=== PATIENT | female | born 1950 | race Caucasian/White ===

== ENCOUNTER 2024-09-24 11:21 | Inpatient (IN) ==
--- NOTE | 2024-09-24 11:43 | Emergency Department Note ---
Impression & Plan Non-ST elevation MO (NSTEMI), Elevated troponin, Abnormal ECG ED Provider Note NAME: DANTE GUARDADO AGE: 74 SEX: F : 1950 ARRIVES VIA: Walk-In INFORMANT: Patient ED PROVIDER(S): Nate Grande DO CHIEF COMPLAINT: chest pain HPI: Patient is a 74-year-old female who presents ER with a past medical history of IBS for chest pain. She notes intermittently she has been getting pressure burning pain in the middle of her chest that comes and goes. Generally occurs in the morning when she wakes up and last for several hours and then abates. Occurred yesterday to 11:00 and occurred again today till about 12/14/2010. She denies any arm or jaw pain but admits to feeling heavy and weak throughout her arms and legs. She currently has no pain at all. Denies any dysuria, urgency, or frequency. Admits to chronic back pain which is unchanged. ADDITIONAL HISTORY OBTAINED: Per HPI Chronic Medical/Social Conditions Affecting Care: Per HPI PAST MEDICAL HISTORY:See Below PAST SURGICAL HISTORY:See Below FAMILY HISTORY:See Below SOCIAL HISTORY:See Below HOME MEDICATIONS:See Below ALLERGIES:See Below VITALS:See Below PHYSICAL EXAMINATION: GENERAL: Sitting up in bed, alert, well appearing, well nourished, no distress, non-toxic EYE EXAM: normal conjunctiva. OROPHARYNX: mucous membranes are moist NECK: supple, no nuchal rigidity, no adenopathy, non-tender LUNGS: Clear to auscultation. Normal chest wall mechanics HEART: no murmurs, S1 normal and S2 normal ABDOMEN: abdomen soft, non-tender, normo-active bowel sounds, no masses, no rebound or guarding. UPPER EXTREMITIES: upper extremities are grossly normal. LOWER EXTREMITIES: No pitting edema. Calves are equal bilaterally NEURO EXAM: Normal sensorium, cranial nerves II-XII grossly intact, normal speech, no gross weakness of arms, no gross weakness of legs. MEDICAL DECISION MAKING: Patient is a 74-year-old female who presents ER for chest pain which has been occurring off and on for the past 3 days. IV was established and blood work was obtained. Labs showed no significant leukocytosis or anemia. INR unremarkable. BMP with mild hypokalemia 3.3. LFTs bilirubin were unremarkable. Troponin was elevated at 300. Lipase was normal. Discussed with cardiology and heparin drip and bolus was ordered. Patient and family were updated bedside discussed case with the hospitalist for further evaluation management treatment. Drip and bolus was canceled as it was also ordered by the Hospitalist. Consults/Care Managements Discussions: Per [facility] Triage Nursing notes reviewed. Limited review of prior medical records performed Vital Signs: reviewed and remarkable for HTN Differential diagnosis: Cardiac ischemia, aortic dissection, pulmonary embolism, pneumothorax, pneumonia, pericarditis, myocarditis, esophageal rupture, GERD, cholecystitis, pancreatitis, musculoskeletal, as well as other pathologies. ER treatment provided: See below Diagnostics interpreted by me include EKG and cardiac monitoring as listed below: -Cardiac Monitoring: An order was placed for continuous cardiac monitoring. The monitor shows a rate of 60 with sinus rhythm. -ECG: Sinus rhythm rate of 93 Normal axis No PVCs ST depressions in the inferior leads as well as lateral leads which are new in comparison to previous -Laboratory studies:Interpreted by me as stated above in MDM and shown below. Imaging studies: Xrays: As interpreted by me: Portable AP upright 1 view of the chest shows no focal Lutrate CTs show: none Procedures:none Critical Care: None Past Med/Surg History Problem List (Updated 09/24/24 @ 14:45 by Nate Grande DO) Abnormal ECG (Acute) Elevated troponin (Acute) Non-ST elevation MO (NSTEMI) (Acute) COVID-19 (Acute) IBS (irritable bowel syndrome) (Chronic) Hyperventilation (Acute) Sinusitis (Acute) Medical History IBS (irritable bowel syndrome) Social History Smoking Status: Never smoker Preferred Language: Turkish Feels Safe at Home: Yes Allergies Allergies Allergy/AdvReac Type Severity Reaction Status Date / Time Penicillins Allergy Intermediate RASH Verified 04/13/13 10:00 Home Meds Home Medications Medication Instructions Recorded Confirmed LORAZEPAM 0.5 mg TID PRN anxiey ##0 11/22/12 09/24/24 ONDANSETRON HCL (ZOFRAN) 4 mg PO Q6 PRN Nausea And Vomiting 11/22/12 09/24/24 #0 tabs Bupropion (Wellbutrin Sr) 200 mg PO BID #0 tabs 02/01/15 09/24/24 DICYCLOMINE HCL 1 cap PO QID 30 days #90 caps 02/01/15 09/24/24 HYDROCHLOROTHIAZIDE 1 tab PO DAILY 90 days #90 tabs 02/01/15 09/24/24 LOSARTAN POTASSIUM (COZAAR) 25 mg PO DAILY #0 tabs 02/01/15 09/24/24 MELATONIN (MELATONIN MAXIMUM 1 tab PO HS 30 days #30 tabs 02/01/15 09/24/24 STRENGT) OMEPRAZOLE (PRILOSEC) 40 mg PO DAILY #0 caps 02/01/15 09/24/24 Advair HFA 1 puff PO DAILY PRN Wheezing 09/24/24 09/24/24 Flonase 1 inh GABRIELE DAILY PRN allergic 09/24/24 09/24/24 rhinitis albuterol 1 puff PO Q4H PRN Wheezing 09/24/24 09/24/24 buspirone 5 mg tablet 5 mg PO TID 09/24/24 09/24/24 estradiol 0.01% (0.1 mg/gram) 1 g vaginal DAILY 09/24/24 09/24/24 vaginal cream (Estrace) levocetirizine 5 mg tablet 5 mg DAILY PRN allergies 09/24/24 09/24/24 montelukast 10 mg tablet 10 mg PO HS 09/24/24 09/24/24 (Singulair) Results & Data (ED) Vital Signs Vital Signs - 24 hr 09/24/24 11:23 09/24/24 11:27 09/24/24 12:09 Temperature 36.6 C Temperature Source Temporal Artery Scan Pulse Rate 67 64 Respiratory Rate 18 Respiratory Effort / Characteristics Non-Labored Spontaneous Respiratory Depth Normal Respiratory Pattern Regular Blood Pressure 149/84 H Blood Pressure Mean 105 Blood Pressure Position Sitting Pulse Oximetry 99 99 Oxygen Delivery Method Room Air Room Air Sepsis Recent Fever Within 48 Hours No Sepsis New/Unexplained Change in Mental Status N/A Sepsis Action Taken by Nursing No Action Required Laboratory Data 09/24/24 11:38 09/24/24 11:38 Lab Results 09/24/24 Range/Units 11:38 WBC 8.39 (4.8-10.8) K/ul RBC 5.49 H (4.20-5.40) M/uL Hgb 14.8 (12.0-16.0) g/dl Hct 45.4 (37.0-47.0) % MCV 82.7 (80.0-100.0) fL MCH 27.0 (25.0-34.0) pg MCHC 32.6 (32.0-36.0) g/dL RDW Std Deviation 38.6 (36.4-46.3) fL RDW Coeff of Madeleine 12.7 (11.5-14.5) % Plt Count 126 L (130-400) K/uL MPV 9.3 L (9.4-12.4) fL Immature Gran % (Auto) 0.4 % Neut % (Auto) 69.7 % Lymph % (Auto) 20.3 % Randall % (Auto) 7.3 % Eos % (Auto) 1.8 % Baso % (Auto) 0.5 % Neut # (Auto) 5.86 (1.40-6.50) K/uL Lymph # (Auto) 1.70 (1.20-3.40) K/uL Randall # (Auto) 0.61 H (0.11-0.59) K/uL Eos # (Auto) 0.15 (0.00-0.50) K/uL Baso # (Auto) 0.04 (0.00-0.20) K/uL Immature Gran # (Auto) 0.03 (0.01-0.20) K/uL PT 10.6 (9.0-12.0) Seconds INR 1.0 (0.9-1.1) Sodium 137 (136-145) mmol/L Potassium 3.3 L (3.5-5.1) mmol/L Chloride 99 (98-107) mmol/L Carbon Dioxide 30 (21-32) mmol/L Anion Gap 8 (3-11) BUN 15 (6-23) mg/dl Creatinine 0.87 (0.6-1.2) mg/dl Est Cr Clr Drug Dosing 46.5 ml/min eGFR 69.44 BUN/Creatinine Ratio 17.2 (10-20) Glucose 110 H (70-99(Fasting)) mg/dl Calcium 9.9 (8.6-10.3) mg/dl Total Bilirubin 0.5 (0.2-1.0) mg/dl AST 22 (13-39) U/L ALT 18 (7-52) U/L Alkaline Phosphatase 91 (34-104) U/L Troponin I High Sens 324.0 H* (0-14) pg/ml Total Protein 7.6 (6.0-8.3) gm/dl Albumin 4.3 (3.4-5.0) gm/dl Globulin 3.3 (2.5-4.0) gm/dl Albumin/Globulin Ratio 1.3 (0.9-2) Lipase 12 (11-82) U/L Administered Medications Potassium Chloride (K Jesus / Wtr) 10 meq in 100 mls @ 100 mls/hr IV Q1H BALDO Stop: 09/24/24 15:29 Last Admin: 09/24/24 13:49 Dose: 100 mls/hr Documented By: JON Discontinued Medications Aspirin (Aspirin Chew 324 Mg) 324 mg PO NOW STA Stop: 09/24/24 11:41 Last Admin: 09/24/24 11:49 Dose: 324 mg Documented By: NERY Lorazepam (Lorazepam 0.5 Mg Tab) 0.5 mg PO NOW STA Stop: 09/24/24 13:38 Last Admin: 09/24/24 13:50 Dose: 0.5 mg Documented By: JON Ondansetron HCl (Ondansetron Inj 2 Mg/Ml 2 Ml Vial) Confirm Administered Dose 4 mg .ROUTE .STK-MED ONE Stop: 09/24/24 14:17 Last Admin: 09/24/24 14:31 Dose: Not Given Documented By: JON Potassium Chloride (Potassium Chloride Crtab 20 Meq Tabcr) 40 meq PO NOW STA Stop: 09/24/24 13:19 Last Admin: 09/24/24 13:49 Dose: 40 meq Documented By: JON Imaging Data Radiologist's Impression: Chest X-Ray 09/24/24 11:27 XR chest 1V portable HISTORY: 74 years-old Female Chest pain, nonspecific COMPARISON: 09/17/2022 TECHNIQUE: AP view of the chest FINDINGS: Cardiomediastinal and hilar silhouettes are within normal limits. No pneumothorax, pleural effusion or airspace consolidation. Bones appear grossly intact. IMPRESSION: No acute process. ACT 112: Negative or not required by law. The above report was generated using voice recognition software. It may contain grammatical, syntax or spelling errors. Electronically signed by: Juan Mccray M.D. 09/24/2024 12:01 PM Discharge Plan Visit Data Chief Complaint: Chest Pain Stated Complaint: BURNING IN CHEST, ARM WEAKNESS ED Provider: Nate Grande Discharge Problem: Non-ST elevation MO (NSTEMI), Elevated troponin, Abnormal ECG Condition: Fair Forms Stand Alone Forms: [facility] Prescriptions Prescriptions: No Action LORAZEPAM 0.5 MG tablet 0.5 mg TID PRN (Reason: anxiey) Qty: 0 ONDANSETRON HCL (ZOFRAN) 4 MG tablet 4 mg PO Q6 PRN (Reason: Nausea And Vomiting) Qty: 0 Bupropion (Wellbutrin Sr) 200 MG EXT REL TAB 200 mg PO BID Qty: 0 DICYCLOMINE HCL 10 MG capsule 1 cap PO QID 30 Days Qty: 90 HYDROCHLOROTHIAZIDE 25 mg tablet 1 tab PO DAILY 90 Days Qty: 90 LOSARTAN POTASSIUM (COZAAR) 25 MG tablet 25 mg PO DAILY Qty: 0 MELATONIN (MELATONIN MAXIMUM STRENGT) 5 MG tablet 1 tab PO HS 30 Days Qty: 30 OMEPRAZOLE (PRILOSEC) 40 mg CONTR REL CAP 40 mg PO DAILY Qty: 0 Advair HFA 45 mcg inhaler 1 puff PO DAILY PRN (Reason: Wheezing) buspirone [BuSpar] 5 mg Tablet 5 mg PO TID montelukast [Singulair] 10 mg Tablet 10 mg PO HS estradiol [Estrace] 0.01 % (0.1 mg/gram) Cream 1 g VAGINAL DAILY levocetirizine 5 mg Tablet 5 mg DAILY PRN (Reason: allergies) Flonase 50 mcg inhaler 1 inh GABRIELE DAILY PRN (Reason: allergic rhinitis) albuterol 108 mcg inhaler 1 puff PO Q4H PRN (Reason: Wheezing) Referrals Referrals: Chelsey Chu PA-C [Primary Care Provider] -
[2024-09-24] MEDS: ASPIRIN CHEW 324 MG PO STA (11:49)
[2024-09-24 11:54] LABS: Hematocrit (blood only) 45.4 % (37.0-47.0); Hemoglobin 14.8 g/dl (12.0-16.0); Immature Granulocytes # (auto) 0.03 K/uL (0.01-0.20); Immature Granulocytes % (auto) 0.4 %; Mean Corpuscular Hemoglobin 27.0 pg (25.0-34.0); Mean Corpuscular Volume 82.7 fL (80.0-100.0); Platelet Count 126 K/uL (130-400); RDW Standard Deviation 38.6 fL (36.4-46.3); Red Blood Count 5.49 M/uL (4.20-5.40); White Blood Count 8.39 K/ul (4.8-10.8)
--- NOTE | 2024-09-24 12:02 | XRay Report ---
XR chest 1V portable HISTORY: 74 years-old Female Chest pain, nonspecific COMPARISON: 09/17/2022 TECHNIQUE: AP view of the chest FINDINGS: Cardiomediastinal and hilar silhouettes are within normal limits. No pneumothorax, pleural effusion o r airspace consolidation. Bones appear grossly intact. IMPRESSION: No acute process. ACT 112: Negative or not required by law. The above report was generated using voice recognition software. It may contain grammatical, syntax o r spelling errors. Electronically signed by: Juan Mccray M.D. 09/24/2024 12:01 PM
[2024-09-24 12:13] LABS: Alanine Aminotransferase 18.0 U/L (7-52); Albumin Globulin Ratio 1.3 (0.9-2); Alkaline Phosphatase 91.0 U/L (34-104); Anion Gap 8.0 (3-11); Bilirubin,Total 0.5 mg/dl (0.2-1.0); Blood Urea Nitrogen 15.0 mg/dl (6-23); Calcium 9.9 mg/dl (8.6-10.3); Carbon Dioxide 30.0 mmol/L (21-32); Chloride 99.0 mmol/L (98-107); Creatinine Clr Calc Pharmacy 46.5 ml/min; Globulin 3.3 gm/dl (2.5-4.0); Glucose 110.0 mg/dl (70-99(Fasting)); Lipase 12.0 U/L (11-82); Potassium 3.3 mmol/L (3.5-5.1); Sodium 137.0 mmol/L (136-145); Total Protein 7.6 gm/dl (6.0-8.3)
--- NOTE | 2024-09-24 12:51 | History & Physical Report ---
Date of Service September 24, 2024 Assessment & Plan (1) Non-ST elevation IN (NSTEMI): (2) Abnormal ECG: Plan Ms. Martinez is a 74 year old woman with past medical history remarkable for recurrent major depressive disorder, anxiety, moderate persistent asthma, HTN, chronic pansinusitis admitted to PCU for NSTEMI #NSTEMI #Heart Failure with reduced EF, 30-35% 3 days substernal chest pain, initial troponin 324-->1115.6 Heparin drip started Cardiology consulted: NPO midnight for LHC tomorrow admit PCU Hold AV anali alan for now lipid panel and a1c in am asa in am nitropaste q 6 hours #Hypokalemia IV and po replacement trend BMP in am #recurrent major depressive disorder #anxiety continue wellbutrin continue buspar continue ativan prn #IBS continue bentyl qid continue docusate continue zofran prn #HTN On losartan 25mg and HCTZ 25mg Hold for now, resume ARB as able #Chronic pansinusitis #Mild asthma nebs prn DVT ppx Heparin drip Full code admit PCU Admission and Anticipated Discharge Date Admission Date: Time spent evaluating patient, direct bedside care, chart review, placing orders, interpretation of diagnostic studies, discussion with consultants, patient, and family members, as well as other required patient management activities is 80 minutes. History of Present Illness Chief Complaint: chest pain Primary Care Provider: Chelsey Chu PA-C Ms. Martinez is a 74 year old woman with past medical history remarkable for recurrent major depressive disorder, anxiety, moderate persistent asthma, HTN, chronic pansinusitis presented to [facility] ED due to chest discomfort. Patient states she noted this discomfort 3 days prior. She refutes the use of the term pain, describing it as a deep, intermitted, substernal burning. This does not feel like prior reflux/heart burn sensation she routinely has--she states this is more intense. She thinks "blue Gatorade" makes it worse, but doesn't notice any other association with intake. She reports extreme anxiety over divorce ongoing and suspects this is all "just reflux" Denies history of heart issues. Denies tobacco use, etoh, or other illicit use. In the ED, vitals were notable for BP of 140-150s HR of 60s and O2 sat of high 90s on room air Imaging revealed EKG notable for St changes in in V1-V2, as well as V4-V6 ED interventions: asa 324 Consultants: Cardiology Patient to be admitted to PCU for further evaluation and management of ACS Allergies Allergy/AdvReac Type Severity Reaction Status Date / Time Penicillins Allergy Intermediate RASH Verified 04/13/13 10:00 Home Medications Medication Instructions Recorded Confirmed Type LORAZEPAM 0.5 mg TID PRN anxiey ##0 11/22/12 09/24/24 History ONDANSETRON HCL (ZOFRAN) 4 mg PO Q6 PRN Nausea And Vomiting 11/22/12 09/24/24 History #0 tabs Bupropion (Wellbutrin Sr) 200 mg PO BID #0 tabs 02/01/15 09/24/24 History DICYCLOMINE HCL 1 cap PO QID 30 days #90 caps 02/01/15 09/24/24 History HYDROCHLOROTHIAZIDE 1 tab PO DAILY 90 days #90 tabs 02/01/15 09/24/24 History LOSARTAN POTASSIUM (COZAAR) 25 mg PO DAILY #0 tabs 02/01/15 09/24/24 History MELATONIN (MELATONIN MAXIMUM 1 tab PO HS 30 days #30 tabs 02/01/15 09/24/24 History STRENGT) OMEPRAZOLE (PRILOSEC) 40 mg PO DAILY #0 caps 02/01/15 09/24/24 History Advair HFA 1 puff PO DAILY PRN Wheezing 09/24/24 09/24/24 History Flonase 1 inh GABRIELE DAILY PRN allergic 09/24/24 09/24/24 History rhinitis albuterol 1 puff PO Q4H PRN Wheezing 09/24/24 09/24/24 History buspirone 5 mg tablet 5 mg PO TID 09/24/24 09/24/24 History estradiol 0.01% (0.1 mg/gram) 1 g vaginal DAILY 09/24/24 09/24/24 History vaginal cream (Estrace) levocetirizine 5 mg tablet 5 mg DAILY PRN allergies 09/24/24 09/24/24 History montelukast 10 mg tablet 10 mg PO HS 09/24/24 09/24/24 History (Singulair) Past Med/Surg History Problem List (Updated 09/24/24 @ 15:25 by DAISY Waddell) Hypertension Abnormal ECG (Acute) Elevated troponin (Acute) Non-ST elevation IN (NSTEMI) (Acute) COVID-19 (Acute) IBS (irritable bowel syndrome) (Chronic) Hyperventilation (Acute) Sinusitis (Acute) Medical History IBS (irritable bowel syndrome) Social History Smoking Status: Never smoker Preferred Language: Martiniquais Feels Safe at Home: Yes Review of Systems Review of Systems: Constitutional: (-) fever/chills, (-) recent loss of weight, (-) appetite changes, (-) night sweats. Head: (-) headache, (-) dizziness. Eye: (-) blurring of vision, (-) double vision, (-) redness. Ear: (-) hearing loss, (-) discharge, (-) vertigo Nose: (-) discharge, (-) bleeding, (-) congestion, (-) post nasal drip. Throat: (-) sore throat, (-) hoarseness of voice, (-) odynophagia. Cardiovascular: (++) chest pain, (-) palpitations, (-) syncope, (-) orthopnea, (-) PND, (-) leg swelling. Respiratory: (-) shortness of breath, (-) cough, (-) wheezing, (-) hemoptysis. Neuro: (-) weakness in extremities, (-) numbness, (-) tingling, (-) tremor. Gastrointestinal: (-) belly pain, (-) belly distension, (-) nausea, (-) vomiting, (-) diarrhea, (-) constipation Genitourinary: (-) hematuria, (-) dysuria, (-) polyuria, (-) hesitancy, (-) frequency, (-) urinary incontinence. Musculoskeletal: (-) myalgia, (-) arthralgia. Skin: (-) rashes. Endocrine: (-) heat/cold intolerance. Psychiatry: (-) depression, (-) hallucination. Physical Exam Physical Exam: GENERAL APPEARANCE: AxOx4, very anxious however pleasant woman HEENT: NC, AT. MMM. EOMI, clear conjunctiva, oropharynx clear. NECK: Supple without lymphadenopathy. No stiffness or restricted ROM. HEART: Normal rate and regular rhythm, normal S1/S1, no m/r/g, pain not reproducible to palpation LUNGS: CTAB, moving air well. No crackles or wheezes are heard. ABDOMEN: Soft, nontender, nondistended with good bowel sounds heard. BACK: No CVAT, no obvious deformity. EXTREMITIES: Without cyanosis, clubbing or edema. NEUROLOGICAL: Grossly nonfocal. Alert and oriented, moving all 4 extremities. CN not formally tested but appear grossly intact. Skin: Warm and dry without any rash. Results & Data Results & Data Vital Signs (Past 12 Hours) Vital Signs Temp Pulse Resp BP Pulse Ox O2 Del Method 09/24/24 12:09 64 09/24/24 11:23 36.6 C 67 18 149/84 H 99 Room Air Laboratory Results Short CBC 09/24/24 Range/Units 11:38 WBC 8.39 (4.8-10.8) K/ul Hgb 14.8 (12.0-16.0) g/dl Hct 45.4 (37.0-47.0) % Plt Count 126 L (130-400) K/uL BMP 09/24/24 11:38 Sodium 137 Potassium 3.3 L Chloride 99 Carbon Dioxide 30 BUN 15 Creatinine 0.87 Glucose 110 H Calcium 9.9 Liver Function 09/24/24 Range/Units 11:38 Total Bilirubin 0.5 (0.2-1.0) mg/dl AST 22 (13-39) U/L ALT 18 (7-52) U/L Alkaline Phosphatase 91 (34-104) U/L Albumin 4.3 (3.4-5.0) gm/dl Medications Administered Home Medications Medication Instructions Recorded Confirmed Last Taken LORAZEPAM 0.5 mg TID PRN ##0 11/22/12 Unknown ONDANSETRON HCL (ZOFRAN) 4 mg PO Q6 PRN #0 tabs 11/22/12 Unknown Bupropion (Wellbutrin Sr) 200 mg PO DAILY #0 tabs 02/01/15 Unknown DICYCLOMINE HCL 1 cap PO QID 30 days #90 caps 02/01/15 Unknown DOXYCYCLINE HYCLATE 1 tab PO BID 10 days #20 tabs 02/01/15 Unknown HYDROCHLOROTHIAZIDE 1 tab PO DAILY 90 days #90 tabs 02/01/15 Unknown LOSARTAN POTASSIUM (COZAAR) 25 mg PO DAILY #0 tabs 02/01/15 Unknown MELATONIN (MELATONIN MAXIMUM 1 tab PO HS 30 days #30 tabs 02/01/15 Unknown STRENGT) OMEPRAZOLE (PRILOSEC) 20 mg PO DAILY #0 caps 02/01/15 Unknown
[2024-09-24 13:34] LABS: INR 1.0 (0.9-1.1); Prothrombin Time 10.6 Seconds (9.0-12.0)
[2024-09-24] MEDS: POTASSIUM CHLORIDE / WTR 10 MEQ/100 ML PLCT IV SCH (13:49)
[2024-09-24] MEDS: POTASSIUM CHLORIDE CRTAB 20 MEQ TABCR PO STA (13:49)
[2024-09-24] MEDS: LORazepam 0.5 MG TAB PO STA (13:50)
[2024-09-24] MEDS ORDERED: Heparin IV Adult Wt-Based Standard w/ INITIAL Bolus Protocol IV STA (14:15)
[2024-09-24] MEDS ORDERED: HEPARIN SOD (PORCINE) 1000 UNIT/ML IV ONE (14:30)
[2024-09-24] MEDS ORDERED: HEPARIN 25000 UNIT/500 ML D5W 25,000 UNITS/500 ML BAG IV SCH (14:30)
[2024-09-24] MEDS: ONDANSETRON INJ 2 MG/ML 2 ML VIAL ONE (14:31)
[2024-09-24] MEDS: Heparin IV Adult Wt-Based Low-Dose *NO* INITIAL Bolus Protocol IV STA (15:14)
[2024-09-24] MEDS: ONDANSETRON INJ 2 MG/ML 2 ML VIAL IV STA (15:15)
[2024-09-24] MEDS: NITROGLYCERIN 2% OINTMENT 30GM TUBE EXT SCH ×2 (15:15→21:05)
[2024-09-24] MEDS: PANTOprazole 40 MG/10 ML SYR IV ONE (15:15)
--- NOTE | 2024-09-24 15:20 | Cardiology Consultation ---
Date of Consultation September 24, 2024 Assessment & Plan (1) Abnormal ECG: (2) Elevated troponin: (3) Non-ST elevation VA (NSTEMI): (4) Hypertension: Plan 74 year old female with PMHx significant for HTN with history of FAUSTO inhibitor intolerance, TRAE, depression, IBS, GERD, and asthma who presented to [facility] on 09/24/24 for evaluation of chest pain. She notes intermittent, non-radiating, burning midsternal chest discomfort that started three days ago. Chest discomfort occurred upon waking up in the morning and got progressively worse over the course of the three days. Isabella like burning/reflux sensation. Went into [facility] for evaluation and told to come into ED for further work- up. Denies pain radiating to jaw or bilateral arms. Denies associated nausea or diaphoresis. EKG upon admission demonstrated ST-T wave abnormality with ST depression in inferolateral leads, 93 bpm, and QTc 489 ms. High-sensitivity troponins x2 elevated ([id number]). Recommendations: * Non-radiating, burning midsternal chest discomfort concerning for NSTEMI given abnormal EKG changes and elevated troponins * Remains stable and asymptomatic with no recurrent chest discomfort since admission * Continue to trend troponins until peak * Start IV heparin gtt for anticoagulation * Start aspirin 81 mg daily * Hold off on starting AV anali blockers at this time given sinus bradycardia * Plan for left heart catheterization tomorrow and NPO at midnight tonight (09/24) except for medications * Continue to monitor on telemetry Case discussed and coordinated with Dr. Gerard. Please see Dr. Gerard notes for further recommendations. I spent a total of 45 minutes coordinating, documenting, and providing care for this patient excluding time spent in the performance of separately billed services or time spent by another provider/QHP. DAISY Waddell Department of Cardiology Supervising Physician Co-Signing Physician Notes I spent a total of 60 minutes on the date of service in preparation, delivery, and documentation of the care provided to this patient, excluding any time spent in the performance of separately billed services. I have personally performed a history and physical examination on the patient. I have reviewed the advance practitioner's documentation, and I agree with, and take responsibility for the plan of care. 74-year-old female with past medical history of generalized anxiety disorder, IBS, GERD, asthma presenting to emergency room today with chest discomfort. She stated the chest pain has been intermittent for the past 3 days. She states she woke with midsternal chest discomfort that she describes as a burning reflux sensation at times lasting for 20 to 30 minutes and other times lasting for few minutes and resolving on its own. She had 1 episode 3 days ago then yesterday had intermittent episodes throughout the day. This morning she woke up with significant discomfort presented to urgent care who had advised patient to come to the emergency room. Upon arrival ECG showed sinus rhythm with ST depressions in the inferolateral leads and Q waves in the anterior leads. Her initial troponin was 324 which increased to 1115. Currently completely asymptomatic not having any more chest discomfort. She denies having any dyspnea, apnea, PND, Edema, palpitations, or syncope. She denies any abnormal bleeding. She denies any prior history of CAD/CHF. As far as she is aware she does not recall any family history of coronary artery disease. Never had a history of smoking. Currently resting comfortably and is hemodynamically stable and clinical exam sh e is euvolemic. Echocardiogram reviewed which showed LVEF of 30 to 35% with large size anterior apical and lateral wall motion abnormalities. No significant valvular disease. Had a long discussion with patient and her family about her symptoms and clinical presentation. She likely has coronary artery disease and we will plan on a left heart catheterization. Patient agrees for procedure to be done. She denies any contrast allergies or history of intracranial hemorrhage or abnormal bleeding. Please keep patient n.p.o. after midnight. Continue to monitor on telemetry. Unable to start beta-alan as her resting heart rate currently is in the mid 50s. She has an intolerance to FAUSTO inhibitors may consider Entresto versus losartan after left heart catheterization for ischemic cardiomyopathy. Please start heparin drip. If patient continues to have chest discomfort may need to discuss with interventional cardiology to take patient to the Product Manager sooner. Otherwise she is currently asymptomatic with no recurrence of chest pain. Will continue to monitor for now. History of Present Illness History of Present Illness 74 year old female with PMHx significant for HTN with history of FAUSTO inhibitor intolerance, TRAE, depression, IBS, GERD, and asthma who presented to [facility] on 09/24/24 for evaluation of chest pain. She notes intermittent, non-radiating midsternal chest discomfort that started three days ago. Isabella like burning/reflux sensation. Chest discomfort occurred in the morning up waking up and resolved quickly the first morning. Developed recurrent chest discomfort yesterday morning up waking and occurred off and on throughout the day. Woke up this morning with severe chest discomfort. Went into [facility] for evaluation and told to come into ED for further work-up. Denies pain radiating to jaw or bilateral arms. Denies associated nausea or diaphoresis. Denies worsening dyspnea on exertion, tachy palpitations, lightheadedness, dizziness, syncope, orthopnea, PND, or worsening edema. Denies history of heart problems. Denies significant bleeding issues including hematochezia or melena. Denies prior history of CVA/TIA. Denies tobacco, alcohol, or illicit drug use. Her mother of cancer and unsure if she had a history of heart disease. Allergies Allergy/AdvReac Type Severity Reaction Status Date / Time Penicillins Allergy Intermediate RASH Verified 04/13/13 10:00 Home Medications Medication Instructions Recorded Confirmed Type LORAZEPAM 0.5 mg TID PRN anxiey ##0 11/22/12 09/24/24 History ONDANSETRON HCL (ZOFRAN) 4 mg PO Q6 PRN Nausea And Vomiting 11/22/12 09/24/24 History #0 tabs Bupropion (Wellbutrin Sr) 200 mg PO BID #0 tabs 02/01/15 09/24/24 History DICYCLOMINE HCL 1 cap PO QID 30 days #90 caps 02/01/15 09/24/24 History HYDROCHLOROTHIAZIDE 1 tab PO DAILY 90 days #90 tabs 02/01/15 09/24/24 History LOSARTAN POTASSIUM (COZAAR) 25 mg PO DAILY #0 tabs 02/01/15 09/24/24 History MELATONIN (MELATONIN MAXIMUM 1 tab PO HS 30 days #30 tabs 02/01/15 09/24/24 History STRENGT) OMEPRAZOLE (PRILOSEC) 40 mg PO DAILY #0 caps 02/01/15 09/24/24 History Advair HFA 1 puff PO DAILY PRN Wheezing 09/24/24 09/24/24 History Flonase 1 inh GABRIELE DAILY PRN allergic 09/24/24 09/24/24 History rhinitis albuterol 1 puff PO Q4H PRN Wheezing 09/24/24 09/24/24 History buspirone 5 mg tablet 5 mg PO TID 09/24/24 09/24/24 History estradiol 0.01% (0.1 mg/gram) 1 g vaginal DAILY 09/24/24 09/24/24 History vaginal cream (Estrace) levocetirizine 5 mg tablet 5 mg DAILY PRN allergies 09/24/24 09/24/24 History montelukast 10 mg tablet 10 mg PO HS 09/24/24 09/24/24 History (Singulair) Patient History Medical History IBS (irritable bowel syndrome) Social History Smoking Status: Never smoker Preferred Language: Swedish Feels Safe at Home: Yes Review of Systems Review of Systems: See HPI for pertinent positives. All others negative other than those noted in the HPI. CONSTITUTIONAL: No change in weight, No weakness, No fatigue, No fevers, No sweats or chills. HEENT: No visual changes, No epistaxis, No bleeding gums, No dysphagia, PULMONARY: No cough, sputum, or hemoptysis, No wheezing, No shortness of breath, and No recent change in breathing. CARDIOVASCULAR: +chest pain. No dyspnea on exertion, No edema, No palpitations, No syncope, No claudication, No calf pain. GASTROINTESTINAL: +heartburn. No change in appetite, No abdominal pain, No change in bowel habits, No nausea, No vomiting, No diarrhea, No constipation, No blood in stools or black tarry stools, No dysphagia. HEMATOLOGIC: No abnormal bleeding and No bruising. NEUROLOGICAL: No falls, No dizziness, No lightheadedness, Normal balance, No headaches, and No weakness. PSYCH: No sleep disturbances, No mood changes. Results & Data Vital Signs (Past 12 Hours) Vital Signs Temp Pulse Resp BP Pulse Ox O2 Del Method 09/24/24 12:09 64 09/24/24 11:27 99 Room Air 09/24/24 11:23 36.6 C 67 18 149/84 H 99 Room Air Diagnostic Findings Cardiac Enzymes 09/24/24 09/24/24 Range/Units 11:38 14:02 AST 22 (13-39) U/L Troponin I High Sens 324.0 H* 1115.6 H* D (0-14) pg/ml Coagulation 09/24/24 Range/Units 11:38 PT 10.6 (9.0-12.0) Seconds CBC 09/24/24 Range/Units 11:38 WBC 8.39 (4.8-10.8) K/ul RBC 5.49 H (4.20-5.40) M/uL Hgb 14.8 (12.0-16.0) g/dl Hct 45.4 (37.0-47.0) % Plt Count 126 L (130-400) K/uL Neut # (Auto) 5.86 (1.40-6.50) K/uL Lymph # (Auto) 1.70 (1.20-3.40) K/uL [place] # (Auto) 0.61 H (0.11-0.59) K/uL Eos # (Auto) 0.15 (0.00-0.50) K/uL Baso # (Auto) 0.04 (0.00-0.20) K/uL Comprehensive Metabolic Panel 09/24/24 Range/Units 11:38 Sodium 137 (136-145) mmol/L Potassium 3.3 L (3.5-5.1) mmol/L Chloride 99 (98-107) mmol/L Carbon Dioxide 30 (21-32) mmol/L BUN 15 (6-23) mg/dl Creatinine 0.87 (0.6-1.2) mg/dl Glucose 110 H (70-99(Fasting)) mg/dl Calcium 9.9 (8.6-10.3) mg/dl AST 22 (13-39) U/L ALT 18 (7-52) U/L Alkaline Phosphatase 91 (34-104) U/L Total Protein 7.6 (6.0-8.3) gm/dl Albumin 4.3 (3.4-5.0) gm/dl Intake and Output 09/24/24 09/24/24 09/24/24 06:59 14:59 22:59 Intake Total 100 / 100 Balance 100 / 100 Intake: IV 100 / 100 Potassium Chloride / Wtr 10 meq 100 / 100 In 100 ml @ 100 mls/hr IV Q1H [facility] Rx#:[id number] Other: Weight 60.2 kg Weight Measurement Method Chair Scale Patient Weight 09/25/24 06:59 Weight 60.2 kg Medications Administered EKG 09/24/[address]-T wave abnormality with ST depression in inferolateral leads 93 bpm QTc 489 PG Care Time/CCT Total # of Minutes Spent Total Time Spent with Patient: Total time spent is greater than 50% in coordination of care (as documented) at patient's floor/unit and/or counseling patient: [place] [address] IN/OBS CONSULT LVL 4,60M Patient Type New Diagnoses Abnormal ECG R94.31 Elevated troponin R79.89 Non-ST elevation VA (NSTEMI) I21.4 Hypertension I10
[2024-09-24] MEDS: NITROGLYCERIN SL 0.4 MG/TAB TAB SL STA (15:26)
[2024-09-24] MEDS ORDERED: POLYETHYLENE (MIRALAX) 17 GM PACK PO PRN (16:08)
[2024-09-24] MEDS ORDERED: ALUMINUM/MAGNESIUM SUSP 30 ML UDC PO PRN (16:08)
[2024-09-24] MEDS ORDERED: ALBUTEROL 0.083% NEBU SOLN 3 ML VIAL NEB PRN (16:08)
[2024-09-24] MEDS: HEPARIN SOD (PORCINE) 1000 UNIT/ML ONE (16:37)
[2024-09-24] MEDS: HEPARIN 25000 UNIT/500 ML D5W IV ONE (16:37)
[2024-09-24] MEDS: HEPARIN 25000 UNIT/500 ML D5W 25,000 UNITS/500 ML BAG IV SCH (16:39)
[2024-09-24] MEDS: DICYCLOMINE HCL 10 MG CAP PO SCH (17:16)
[2024-09-24] MEDS: MONTELUKAST SODIUM 10 MG TABLET PO SCH (20:11)
[2024-09-24] MEDS: DOCUSATE SODIUM 100 MG CAP PO SCH (20:11)
[2024-09-24] MEDS: PREMARIN VAG CRM 14 APPLN/30 GM TUBE PV SCH (20:11)
[2024-09-24] MEDS: busPIRone 5 MG TAB PO SCH (20:11)
[2024-09-24 20:39] LABS: Appearance Urine Clear (Clear); Bacteria Urine Automated 4+ (None Seen); Cast Urine Automated 0-2 /lpf (0-2); Epithelial Cell Urine Auto 0-2 /hpf (0-2); Glucose Urine UA Negative (Negative); RBC Urine Automated 0-2 /hpf (0-2); WBC Urine Automated >50 /hpf (0-5)
[2024-09-24] MEDS: MELATONIN 3 MG TAB PO SCH (21:04)
[2024-09-24] MEDS: LORazepam 0.5 MG TAB PO PRN (21:05)
[2024-09-24] MEDS: ONDANSETRON INJ 2 MG/ML 2 ML VIAL IV PRN (21:09)
--- NOTE | 2024-09-24 21:34 | Communication Note ---
Date of Service: September 24, 2024 Patient with dysuria symptoms. UA WBC esterase AP Complicated UTI Urine CS, Azactam
[2024-09-24] MEDS ORDERED: CEFEPIME 2000MG 2,000 MG/20 ML SYR IV SCH (22:00)
[2024-09-24] MEDS: AZTREONAM 2,000 MG in DEXTROSE 5% MINI-B 100 ML IV SCH (22:38)
[2024-09-25 00:06] LABS: ANTI-Xa, UFH(UnfractionatedHep 0.38 IU/ml (0.3-0.7)
[2024-09-25 07:18] LABS: Anion Gap 7.0 (3-11); Blood Urea Nitrogen 13.0 mg/dl (6-23); Calcium 8.8 mg/dl (8.6-10.3); Carbon Dioxide 28.0 mmol/L (21-32); Chloride 105.0 mmol/L (98-107); Cholesterol 208.0 mg/dl (0-200); Creatinine Clr Calc Pharmacy 51.3 ml/min; Glucose 104.0 mg/dl (70-99(Fasting)); HDL Cholesterol 33.0 mg/dl; Magnesium 1.9 mg/dl (1.7-2.4); Potassium 3.9 mmol/L (3.5-5.1); Sodium 140.0 mmol/L (136-145); Triglycerides 266.0 mg/dl (0-150)
[2024-09-25 07:22] LABS: Hematocrit (blood only) 37.2 % (37.0-47.0); Hemoglobin 12.1 g/dl (12.0-16.0); Mean Corpuscular Hemoglobin 27.1 pg (25.0-34.0); Mean Corpuscular Volume 83.4 fL (80.0-100.0); Platelet Count 95 K/uL (130-400); RDW Standard Deviation 39.7 fL (36.4-46.3); Red Blood Count 4.46 M/uL (4.20-5.40); White Blood Count 10.83 K/ul (4.8-10.8)
[2024-09-25 07:31] LABS: Hemoglobin A1C 5.9 % (4.5-5.6)
--- NOTE | 2024-09-25 07:52 | Pre Anesthesia Assessment ---
Date of Service September 25, 2024 Pre Sedation Assessment Vital Signs Temp Pulse Pulse Resp BP BP Pulse Ox 09/25/24 07:37 97.5 F L 72 17 109/63 96 09/25/24 02:30 98.1 F 72 18 107/68 97 09/24/24 23:26 98.4 F 72 18 99/62 L 95 09/24/24 22:24 64 09/24/24 20:00 98.2 F 71 17 132/76 97 09/24/24 17:19 71 09/24/24 16:12 97.3 F L 74 16 127/78 99 09/24/24 15:00 53 L 119/81 100 09/24/24 14:30 66 20 127/90 99 09/24/24 14:00 45 L 17 154/104 H 100 09/24/24 13:30 83 22 166/113 H 09/24/24 13:18 64 169/102 H 09/24/24 12:09 64 09/24/24 12:00 66 16 135/91 09/24/24 11:33 74 17 165/132 H 09/24/24 11:27 99 09/24/24 11:23 97.9 F 67 18 149/84 H 99 O2 Del Method 09/25/24 07:37 Room Air 09/25/24 02:30 Room Air 09/24/24 23:26 Room Air 09/24/24 22:24 09/24/24 20:00 Room Air 09/24/24 17:19 09/24/24 16:12 Room Air 09/24/24 15:00 09/24/24 14:30 09/24/24 14:00 09/24/24 13:30 09/24/24 13:18 09/24/24 12:09 09/24/24 12:00 09/24/24 11:33 09/24/24 11:27 Room Air 09/24/24 11:23 Room Air Cardiovascular + regular rate Respiratory + respiratory effort normal Pre-Sedation Airway Assessment Smoking Status: Never smoker Hx Sleep Apnea: No Hx Difficult Intubation: No Short, Thick Neck: No Thyromental Distance: < 3.5 Finger Breadths Oral Cavity: + Dental Abnormalities Mallampati Class: III ASA: ASA3 Procedure Planning Contraindications for Sedation: none Current Medications Reviewed: Yes Notes The planned sedation has been discussed with the patient. Informed Consent was obtained. I have identified the patient, determined the appropriateness of sedation and have assessed the patient immediately prior to the procedure. All medicine(s) and interventions are by my order.
--- NOTE | 2024-09-25 08:19 | Electrocardiogram Report ---
Test Reason : Blood Pressure : */* mmHG Vent. Rate : 93 BPM Atrial Rate : 93 BPM P-R Int : 140 ms QRS Dur : 102 ms QT Int : 394 ms P-R-T Axes : 57 -8 117 degrees QTcB Int : 489 ms Sinus rhythm with Premature atrial complexes with Aberrant conduction Possible Anterior infarct (cited on or before 17-Sep-2022) Non-specific intra-ventricular conduction delay Abnormal ECG When compared with ECG of 17-Sep-2022 09:47, Aberrant conduction is now Present QRS duration has increased Serial changes of Anterior infarct Present Confirmed by Tamra Hinojosa (Bob) on 09/25/2024 8:19:33 AM Referred By: REFERRED SELF Confirmed By: Tamra Hinojosa
[2024-09-25] MEDS: HEPARIN (PORCINE) 1000 UNIT/ML 10 ML (CATH LAB USE ONLY) ONE (10:52)
[2024-09-25] MEDS: MIDAZOLAM HCL 1 MG/ML 2ML VIAL ONE (10:52)
[2024-09-25] MEDS: OPTIRAY 350 ONE (10:52)
[2024-09-25] MEDS: niCARdipine 2,000 MCG/20 ML SYR ONE (10:53)
[2024-09-25] MEDS: NITROGLYCERIN/D5W 100MCG/ML 20ML SYR ONE (10:53)
--- NOTE | 2024-09-25 11:03 | Post Anesthesia Assessment ---
Date of Service September 25, 2024 Post Sedation Assessment Vital Signs Temp Pulse Pulse Pulse Resp BP BP 09/25/24 07:58 79 18 117/78 09/25/24 07:37 97.5 F L 72 17 109/63 09/25/24 02:30 98.1 F 72 18 107/68 09/24/24 23:26 98.4 F 72 18 99/62 L 09/24/24 22:24 64 09/24/24 20:00 98.2 F 71 17 132/76 09/24/24 17:19 71 09/24/24 16:12 97.3 F L 74 16 127/78 09/24/24 15:00 53 L 119/81 09/24/24 14:30 66 20 127/90 09/24/24 14:00 45 L 17 154/104 H 09/24/24 13:30 83 22 166/113 H 09/24/24 13:18 64 169/102 H 09/24/24 12:09 64 09/24/24 12:00 66 16 135/91 09/24/24 11:33 74 17 165/132 H 09/24/24 11:27 09/24/24 11:23 97.9 F 67 18 149/84 H Pulse Ox O2 Del Method 09/25/24 07:58 96 Room Air 09/25/24 07:37 96 Room Air 09/25/24 02:30 97 Room Air 09/24/24 23:26 95 Room Air 09/24/24 22:24 09/24/24 20:00 97 Room Air 09/24/24 17:19 09/24/24 16:12 99 Room Air 09/24/24 15:00 100 09/24/24 14:30 99 09/24/24 14:00 100 09/24/24 13:30 09/24/24 13:18 09/24/24 12:09 09/24/24 12:00 09/24/24 11:33 09/24/24 11:27 99 Room Air 09/24/24 11:23 99 Room Air Recovery Score Activity: Moves 4 extremities Respiration: Deep Breath/Cough Circulation: +/-20% PreAnes Value Consciousness: Fully Awake Oxygen Saturation: O2 needed for >90% Discharge Sedation Level of Care: Fast Track Phase II
--- NOTE | 2024-09-25 11:10 | Cardiac Catheterization ---
[facility] Data: Injection Molding Process Technician Cardiac Status Clinical evaluation leading to the procedure CAD Presenation: Non STEMI Diagnostic Physicians Name: Christophe Lindsey MD Closure Device Recommendations: CABG Cardiac Cath Procedure Full Procedure Date September 25, 2024 Pre-Procedure Diagnosis Pre-Procedure Diagnosis: Non STEMI AUC Score AUC Score: 8 Post-Procedure Diagnosis Post-Procedure Diagnosis: Severe CAD and Elevated Intracardiac Pressures Procedure(s) Performed Procedure(s) Performed: Coronary Angiography and Left Heart Cath Air Purifier Servicer Christophe Lindsey MD Cane Weigher Helper(s) Leodan Estimated Blood Loss Estimated Blood Loss: 15 Medication(s) Medication(s): Fentanyl, Heparin, Lidocaine 1%, Nicardipine, Nitroglycerin and Versed Summary of Findings Indication: NSTEMI, new LV dysfunction Access: 6 Fr slender right radial artery Catheters: Ninole, JL 3 5, Jeferson Findings: LM -small caliber, angulated takeoff, 5060% proximal stenosis (mild waveform dampening with catheter engagement). LAD -medium caliber, 95% proximal stenosis just before takeoff of D1, 70-80% mid segment stenosis at takeoff of D2, distal vessel small with mild diffuse disease and tapers to apex. D2 small to medium caliber with diffuse 30-40% proximal to mid disease. Circumflex -medium caliber, 30% ostial, remainder of AV groove circumflex without significant disease. Small OM 2 with 99% ostial stenosis RCA -dominant, large caliber, mid segment luminal irregularities. Medium RPDA with 95% mid segment stenosis. Medium posterior lateral branch with 60% proximal and mid disease. LVEDP -20 Arterial Closure: TR band Summary: 1. Severe multivessel coronary artery disease - 5060% ostial, angulated left main 95% proximal LAD, 75% mid LAD at takeoff of D2 95% mid RPDA 2. Elevated intracardiac filling pressure (LVEDP 20) Recommendations: Further evaluation by cardiac surgery at [facility] for possible CABG Hemodynamics Rest Ao:: 118/67/101 Final Ao: 135/77/102 LV: 117/20 Recommendations Recommendations: CABG Specimens Specimens: None Radiation Exposure (mGy) 439 Contrast (mls) 35 Anesthesia Moderate 5394-5238 Procedural Complication(s) None Disposition PCU I attest to the content of the Intraoperative Record and any orders documented therein. Any exceptions are noted below. [facility] Card Cath Procedure Codes Cardiac Catheterization Procedure 1: Cardiovascular Cath Procedures: 98939 Coronaries and LHC (+/-LV) Moderate Sedation Procedure 1: Sedation/Anesthesia: 74877 Mod Sedation by the same physician;Init15 Min Child Age 5 & Up PG Care Time/CCT Total # of Minutes Spent Total Time Spent with Patient: Total time spent is greater than 50% in coordination of care (as documented) at patient's floor/unit and/or counseling patient:
[2024-09-25] MEDS: ASPIRIN 81 MG ECTAB PO SCH (11:50)
--- NOTE | 2024-09-25 14:23 | Electrocardiogram Report ---
Test Reason : Blood Pressure : */* mmHG Vent. Rate : 45 BPM Atrial Rate : 45 BPM P-R Int : 152 ms QRS Dur : 84 ms QT Int : 500 ms P-R-T Axes : 89 95 85 degrees QTcB Int : 432 ms Sinus bradycardia Anterolateral infarct (cited on or before 24-Sep-2024) Abnormal ECG When compared with ECG of 24-Sep-2024 11:32, Aberrant conduction is no longer Present Vent. rate has decreased by 48 bpm QRS duration has decreased Serial changes of evolving Anterior infarct Present Serial changes of evolving Anterolateral infarct Present Confirmed by Fadi Carballo ([id number]) on 09/25/2024 2:23:01 PM Referred By: REFERRED SELF Confirmed By: Fadi Carballo
[2024-09-25] MEDS: ACETAMINOPHEN 500 MG TAB PO STA (16:12)
[2024-09-25] MEDS: LORazepam 0.5 MG TAB PO STA (16:12)
--- NOTE | 2024-09-25 17:18 | Cardiology Progress Note ---
Date of Service September 25, 2024 Assessment & Plan (1) Non-ST elevation [place] (NSTEMI): (2) Ischemic cardiomyopathy: Plan: 74-year-old female presents with chest discomfort, non-ST segment elevation myocardial infarction, newly diagnosed moderate left ventricular systolic dysfunction. Cardiac catheterization performed today via the right radial artery approach summarized as below: 1. Severe multivessel coronary artery disease - 5060% ostial, angulated left main 95% proximal LAD, 75% mid LAD at takeoff of D2 95% mid RPDA 2. Elevated intracardiac filling pressure (LVEDP 20) * Continue aspirin 81 mg daily * Heparin infusion * Topical nitroglycerin, 0.5 inches Q6 * Patient not on a beta-alan due to baseline sinus bradycardia * Had past intolerance to FAUSTO inhibitor therapy. * Add atorvastatin 80 mg daily (LDL 122 mg/dL). * Transfer patient to [facility] for Further assessment to include possible viability assessment, CT surgery consultation for CABG. (3) UTI (urinary tract infection): Plan: * Patient reported dysuria overnight last night with abnormal urinalysis. Urine culture has yielded E. coli. Sensitivities pending. Continue empiric aztreonam for now. Case discussed with Dr Duong Meadows of cardiology at [facility] who accepted patient in transfer. Case discussed with Dr Aiken for the purpose of coordination of care. I spent a total of 50 minutes on the date of service in preparation, delivery, and documentation of the care provided to this patient, excluding any time spent in the performance of separately billed services. Leo Guzman DO Admission and Anticipated Discharge Date Admission Date: September 24, 2024 Subjective Patient seen and general cardiology reassessment post cardiac catheterization. Tolerated the procedure well. Right radial band removed. Hemodynamically stable. Heparin infusion reinitiated. Denies any additional chest discomfort today. Telemetry reveals sinus rhythm in the 70s. Physical Exam Physical Exam: General: no acute distress and stated age Eyes: conjunctiva are pink and non-injected, sclera clear Neck: normal jugular venous pulse, no hepatojugular reflux Chest: normal shape and normal respiratory effort Lungs: clear to auscultation and percussion Cardiac Exam: - regular heart sounds, no murmurs, rubs, or gallops, no jugular venous distention Abdomen: abdomen soft, non-tender, no abnormal masses and no hepatosplenomegaly Extremities: no edema and no cyanosis, Right radial catheterization site clean dry and intact, no ecchymosis Neuro:awake, conversant, follows commands, no focal motor deficits Psych: appropriate affect and insight. Results & Data Vital Signs (Past 12 Hours) Vital Signs Temp Pulse Pulse Pulse Resp BP Pulse Ox 09/25/24 16:00 74 09/25/24 15:08 36.9 C 65 18 120/74 96 09/25/24 13:26 36.4 C L 73 17 118/76 96 09/25/24 12:55 72 16 118/75 98 09/25/24 12:23 76 18 116/75 96 09/25/24 11:55 87 18 127/77 97 09/25/24 11:40 80 18 139/76 96 09/25/24 11:05 80 16 138/74 97 09/25/24 07:58 79 18 117/78 96 09/25/24 07:37 36.4 C L 72 17 109/63 96 O2 Del Method 09/25/24 16:00 09/25/24 15:08 Room Air 09/25/24 13:26 Room Air 09/25/24 12:55 Room Air 09/25/24 12:23 Room Air 09/25/24 11:55 Room Air 09/25/24 11:40 Room Air 09/25/24 11:05 Room Air 09/25/24 07:58 Room Air 09/25/24 07:37 Room Air Laboratory Results Lipids 09/25/24 Range/Units 05:19 Triglycerides 266 H (0-150) mg/dl Cholesterol 208 H (0-200) mg/dl HDL Cholesterol 33 mg/dl Cholesterol/HDL Ratio 6.3 H (0-5) CBC 09/25/24 Range/Units 05:19 WBC 10.83 H (4.8-10.8) K/ul RBC 4.46 (4.20-5.40) M/uL Hgb 12.1 (12.0-16.0) g/dl Hct 37.2 (37.0-47.0) % Plt Count 95 L (130-400) K/uL Comprehensive Metabolic Panel 09/25/24 Range/Units 05:19 Sodium 140 (136-145) mmol/L Potassium 3.9 (3.5-5.1) mmol/L Chloride 105 (98-107) mmol/L Carbon Dioxide 28 (21-32) mmol/L BUN 13 (6-23) mg/dl Creatinine 0.79 (0.6-1.2) mg/dl Glucose 104 H (70-99(Fasting)) mg/dl Calcium 8.8 (8.6-10.3) mg/dl Intake and Output 09/25/24 09/25/24 09/25/24 06:59 14:59 22:59 Intake Total 192.3 / 632.3 542.050 / 542.050 Balance 192.3 / 432.3 542.050 / 542.050 Intake: IV 192.3 / 392.3 302.050 / 302.050 Aztreonam 2,000 mg In Dextrose 100 / 100 200 / 200 5% Mini-B 100 ml @ 100 mls/hr IV Q8 [facility] Rx#:[id number] Heparin 79722 Unit/500 ml D5w 92.3 / 92.3 102.050 / 102.050 25,000 units In 500 ml @ 0 UNITS/HR IV .Q0M [facility] Rx#: [id number] Oral 240 / 240 Other: Other Intake Source npo # Unmeasured Voids 3 2 Weight 60.4 kg Weight Measurement Method Built in [facility] Diagnostic Findings EKG performed 11/22/2024 at 1412 and interpret independently: Sinus bradycardia at 45 bpm, age-indeterminate anterolateral infarct with poor R wave progression in the lateral precordial leads. The inferolateral ST segment depression noted on the previous tracing at 1132 was resolved. Transthoracic echocardiogram performed 09/24/2024: There is a large sized apical, septal, anteroseptal, anterior, posterior, and lateral wall motion abnormality with hypokinesis to akinesis of the segments, LVEF in the range of 30 to 35% -No prior studies available at this institution for direct comparison. [place] [address] SUB INP/OBS CARE 3/50MIN Patient Type New History Comprehensive Exam Comprehensive Medical Decision Making High Complexity Diagnoses Non-ST elevation [place] (NSTEMI) I21.4 Ischemic cardiomyopathy I25.5 UTI (urinary tract infection) N39.0 Urinary tract infection type: acute cystitis (3) UTI (urinary tract infection) Urinary tract infection type: acute cystitis
--- NOTE | 2024-09-25 18:28 | Discharge Summary ---
Discharge Summary Date of Service September 25, 2024 Principal Dx & Hospital Course #1 = Principal Diagnosis (1) Non-ST elevation CT (NSTEMI): (2) Abnormal ECG: Plan Ms. Martinez is a 74 year old woman with past medical history remarkable for recurrent major depressive disorder, anxiety, moderate persistent asthma, HTN, chronic pansinusitis admitted to PCU for NSTEMI #NSTEMI #Heart Failure with reduced EF, 30-35% 3 days substernal chest pain, initial troponin 324-->1115.6 Heparin drip started Cardiology consulted: NPO midnight for LHC tomorrow admit PCU Hold AV anali alan for now lipid panel and a1c in am asa in am nitropaste q 6 hours 09/25 Status post cardiac cath: Findings: LM -small caliber, angulated takeoff, 5060% proximal stenosis (mild waveform dampening with catheter engagement). LAD -medium caliber, 95% proximal stenosis just before takeoff of D1, 70-80% mid segment stenosis at takeoff of D2, distal vessel small with mild diffuse disease and tapers to apex. D2 small to medium caliber with diffuse 30-40% proximal to mid disease. Circumflex -medium caliber, 30% ostial, remainder of AV groove circumflex without significant disease. Small OM 2 with 99% ostial stenosis RCA -dominant, large caliber, mid segment luminal irregularities. Medium RPDA with 95% mid segment stenosis. Medium posterior lateral branch with 60% proximal and mid disease. LVEDP -20 Arterial Closure: TR band Summary: 1. Severe multivessel coronary artery disease - 5060% ostial, angulated left main 95% proximal LAD, 75% mid LAD at takeoff of D2 95% mid RPDA 2. Elevated intracardiac filling pressure (LVEDP 20) Recommendations: Further evaluation by cardiac surgery at [facility] for possible CABG -- Continue heparin drip chest pain resolved #Hypokalemia IV and po replacement trend BMP in am -- resolved #recurrent major depressive disorder #anxiety continue wellbutrin continue buspar continue ativan prn #IBS continue bentyl qid continue docusate continue zofran prn #HTN On losartan 25mg and HCTZ 25mg Hold above for now Monitor blood pressure closely #Chronic pansinusitis #Mild asthma nebs prn DVT ppx Heparin drip Full code transfer to [facility] for possible CABG Notes For Next Care Provider Medication Changes From Visit per medical reconciliation Admission HPI Per Admitting Provider Ms. Martinez is a 74 year old woman with past medical history remarkable for recurrent major depressive disorder, anxiety, moderate persistent asthma, HTN, chronic pansinusitis presented to [facility] ED due to chest discomfort. Patient states she noted this discomfort 3 days prior. She refutes the use of the term pain, describing it as a deep, intermitted, substernal burning. This does not feel like prior reflux/heart burn sensation she routinely has--she states this is more intense. She thinks "blue Gatorade" makes it worse, but doesn't notice any other association with intake. She reports extreme anxiety over divorce ongoing and suspects this is all "just reflux" Denies history of heart issues. Denies tobacco use, etoh, or other illicit use. In the ED, vitals were notable for BP of 140-150s HR of 60s and O2 sat of high 90s on room air Imaging revealed EKG notable for St changes in in V1-V2, as well as V4-V6 ED interventions: asa 324 Consultants: Cardiology Patient to be admitted to PCU for further evaluation and management of ACS Admission Exam Per Admitting Provider GENERAL APPEARANCE: AxOx4, very anxious however pleasant woman HEENT: NC, AT. MMM. EOMI, clear conjunctiva, oropharynx clear. NECK: Supple without lymphadenopathy. No stiffness or restricted ROM. HEART: Normal rate and regular rhythm, normal S1/S1, no m/r/g, pain not reproducible to palpation LUNGS: CTAB, moving air well. No crackles or wheezes are heard. ABDOMEN: Soft, nontender, nondistended with good bowel sounds heard. BACK: No CVAT, no obvious deformity. EXTREMITIES: Without cyanosis, clubbing or edema. NEUROLOGICAL: Grossly nonfocal. Alert and oriented, moving all 4 extremities. CN not formally tested but appear grossly intact. Skin: Warm and dry without any rash. Discharge Exam General- oriented x 3, not in distress, speaks in sentences with no effort or accessory muscle use Eyes- anicteric Neck- no JVD Lungs- clear breath sounds bilaterally, no rales/wheezes Heart- normal rate, regular rhythm; no murmurs Abdomen- normal bowel sounds, nondistended, soft, nontender Extremities- no pretibial edema, no calf tenderness Neuro- alert, oriented x 3; no gross focal neurologic deficits Skin- warm & dry Updated Medication List Medication Instructions Recorded Confirmed Type LORAZEPAM 0.5 mg TID PRN anxiey ##0 11/22/12 09/24/24 History ONDANSETRON HCL (ZOFRAN) 4 mg PO Q6 PRN Nausea And Vomiting 11/22/12 09/24/24 History #0 tabs Bupropion (Wellbutrin Sr) 200 mg PO BID #0 tabs 02/01/15 09/24/24 History DICYCLOMINE HCL 1 cap PO QID 30 days #90 caps 02/01/15 09/24/24 History HYDROCHLOROTHIAZIDE 1 tab PO DAILY 90 days #90 tabs 02/01/15 09/24/24 History LOSARTAN POTASSIUM (COZAAR) 25 mg PO DAILY #0 tabs 02/01/15 09/24/24 History MELATONIN (MELATONIN MAXIMUM 1 tab PO HS 30 days #30 tabs 02/01/15 09/24/24 History STRENGT) OMEPRAZOLE (PRILOSEC) 40 mg PO DAILY #0 caps 02/01/15 09/24/24 History Advair HFA 1 puff PO DAILY PRN Wheezing 09/24/24 09/24/24 History Flonase 1 inh GABRIELE DAILY PRN allergic 09/24/24 09/24/24 History rhinitis albuterol 1 puff PO Q4H PRN Wheezing 09/24/24 09/24/24 History buspirone 5 mg tablet 5 mg PO TID 09/24/24 09/24/24 History estradiol 0.01% (0.1 mg/gram) 1 g vaginal DAILY 09/24/24 09/24/24 History vaginal cream (Estrace) levocetirizine 5 mg tablet 5 mg DAILY PRN allergies 09/24/24 09/24/24 History montelukast 10 mg tablet 10 mg PO HS 09/24/24 09/24/24 History (Singulair) aspirin 81 mg tablet,delayed 81 mg PO DAILY 30 days #30 tabs 09/25/24 Rx release atorvastatin 40 mg tablet 80 mg (2 x 40 mg) PO QAM 30 days 09/25/24 Rx #60 tabs nitroglycerin 2 % transdermal 0.5 inch EXT Q6H 2 days #30 grams 09/25/24 Rx ointment (Nitro-Bid) Hospital Stay Data Consultations 09/24/24 12:53 ED Decision to Admit Stat 09/24/24 15:02 Consult Cardiology Routine 09/24/24 15:28 Consult Cardiac Catheterization Stat 09/25/24 17:55 Burn CD for patient Stat Procedures Performed Operation Date: 09/25/24 08:00 Actual Procedures p Cineradiography w/Routine Exam - Christophe Lindsey MD p Cath, Left with Cors and Vent - Christophe Lindsey MD Diagnostic Imagining Performed Laboratory Results WBC 10.83 K/ul (4.8-10.8) H 09/25/24 05:19 RBC 4.46 M/uL (4.20-5.40) 09/25/24 05:19 Hgb 12.1 g/dl (12.0-16.0) 09/25/24 05:19 Hct 37.2 % (37.0-47.0) 09/25/24 05:19 MCV 83.4 fL (80.0-100.0) 09/25/24 05:19 MCH 27.1 pg (25.0-34.0) 09/25/24 05:19 MCHC 32.5 g/dL (32.0-36.0) 09/25/24 05:19 RDW Std Deviation 39.7 fL (36.4-46.3) 09/25/24 05:19 RDW Coeff of Madeleine 13.1 % (11.5-14.5) 09/25/24 05:19 Plt Count 95 K/uL (130-400) L 09/25/24 05:19 MPV 10.2 fL (9.4-12.4) 09/25/24 05:19 Immature Gran % (Auto) 0.4 % 09/24/24 11:38 Neut % (Auto) 69.7 % 09/24/24 11:38 Lymph % (Auto) 20.3 % 09/24/24 11:38 Gila % (Auto) 7.3 % 09/24/24 11:38 Eos % (Auto) 1.8 % 09/24/24 11:38 Baso % (Auto) 0.5 % 09/24/24 11:38 Neut # (Auto) 5.86 K/uL (1.40-6.50) 09/24/24 11:38 Lymph # (Auto) 1.70 K/uL (1.20-3.40) 09/24/24 11:38 Gila # (Auto) 0.61 K/uL (0.11-0.59) H 09/24/24 11:38 Eos # (Auto) 0.15 K/uL (0.00-0.50) 09/24/24 11:38 Baso # (Auto) 0.04 K/uL (0.00-0.20) 09/24/24 11:38 Immature Gran # (Auto) 0.03 K/uL (0.01-0.20) 09/24/24 11:38 PT 10.6 Seconds (9.0-12.0) 09/24/24 11:38 INR 1.0 (0.9-1.1) 09/24/24 11:38 Heparin Anti-Xa, Unfract 0.38 IU/ml (0.3-0.7) 09/24/24 22:23 Sodium 140 mmol/L (136-145) 09/25/24 05:19 Potassium 3.9 mmol/L (3.5-5.1) 09/25/24 05:19 Chloride 105 mmol/L (98-107) 09/25/24 05:19 Carbon Dioxide 28 mmol/L (21-32) 09/25/24 05:19 Anion Gap 7 (3-11) 09/25/24 05:19 BUN 13 mg/dl (6-23) 09/25/24 05:19 Creatinine 0.79 mg/dl (0.6-1.2) 09/25/24 05:19 Est Cr Clr Drug Dosing 51.3 ml/min 09/25/24 05:19 eGFR 77.96 09/25/24 05:19 BUN/Creatinine Ratio 16.5 (10-20) 09/25/24 05:19 Glucose 104 mg/dl (70-99(Fasting)) H 09/25/24 05:19 Estimat Average Glucose 123 mg/dl 09/25/24 05:19 Hemoglobin A1c 5.9 % (4.5-5.6) H 09/25/24 05:19 Calcium 8.8 mg/dl (8.6-10.3) 09/25/24 05:19 Phosphorus 2.7 mg/dl (2.5-4.9) 09/25/24 05:19 Magnesium 1.9 mg/dl (1.7-2.4) 09/25/24 05:19 Total Bilirubin 0.5 mg/dl (0.2-1.0) 09/24/24 11:38 AST 22 U/L (13-39) 09/24/24 11:38 ALT 18 U/L (7-52) 09/24/24 11:38 Alkaline Phosphatase 91 U/L (34-104) 09/24/24 11:38 Troponin I High Sens 1115.6 pg/ml (0-14) H* D 09/24/24 14:02 Total Protein 7.6 gm/dl (6.0-8.3) 09/24/24 11:38 Albumin 4.3 gm/dl (3.4-5.0) 09/24/24 11:38 Globulin 3.3 gm/dl (2.5-4.0) 09/24/24 11:38 Albumin/Globulin Ratio 1.3 (0.9-2) 09/24/24 11:38 Triglycerides 266 mg/dl (0-150) H 09/25/24 05:19 Cholesterol 208 mg/dl (0-200) H 09/25/24 05:19 LDL Cholesterol, Calc 122 mg/dl 09/25/24 05:19 VLDL Cholesterol, Calc 53 mg/dl (0-30) H 09/25/24 05:19 HDL Cholesterol 33 mg/dl 09/25/24 05:19 Cholesterol/HDL Ratio 6.3 (0-5) H 09/25/24 05:19 Lipase 12 U/L (11-82) 09/24/24 11:38 Urine Color Yellow 09/24/24 20:15 Urine Appearance Clear (Clear) 09/24/24 20:15 Urine pH 7.0 (4.5-7.5) 09/24/24 20:15 Ur Specific Parsons 1.003 (1.000-1.030) 09/24/24 20:15 Urine Protein Negative (Negative) 09/24/24 20:15 Urine Glucose (UA) Negative (Negative) 09/24/24 20:15 Urine Ketones Negative (Negative) 09/24/24 20:15 Urine Blood Negative (Negative) 09/24/24 20:15 Urine Nitrite Negative (Negative) 09/24/24 20:15 Urine Bilirubin Negative (Negative) 09/24/24 20:15 Urine Urobilinogen Negative (Negative) 09/24/24 20:15 Ur Leukocyte Esterase 3+ (Negative) H 09/24/24 20:15 Urine WBC (Auto) >50 /hpf (0-5) H 09/24/24 20:15 Urine RBC (Auto) 0-2 /hpf (0-2) 09/24/24 20:15 U Hyaline Cast (Auto) 0-2 /lpf (0-2) 09/24/24 20:15 U Epithel Cells (Auto) 0-2 /hpf (0-2) 09/24/24 20:15 Urine Bacteria (Auto) 4+ (None Seen) H 09/24/24 20:15 Urine Comment 09/24/24 20:15 Impressions Chest X-Ray 09/24/24 11:27 XR chest 1V portable HISTORY: 74 years-old Female Chest pain, nonspecific COMPARISON: 09/17/2022 TECHNIQUE: AP view of the chest FINDINGS: Cardiomediastinal and hilar silhouettes are within normal limits. No pneumothorax, pleural effusion or airspace consolidation. Bones appear grossly intact. IMPRESSION: No acute process. ACT 112: Negative or not required by law. The above report was generated using voice recognition software. It may contain grammatical, syntax or spelling errors. Electronically signed by: Juan Mccray M.D. 09/24/2024 12:01 PM 09/25/24 07:09 CL Cath Imgs for PACS use only Routine Pending Results Patient Have Any Pending Studies at Discharge: No Discharge Instructions Given to Patient (Per Discharging Provider) please refer to discharge summary Total Time Total Time Spent Total Time Spent (In Minutes): 45 minutes
[2024-09-25] MEDS: ATORVASTATIN 40 MG TAB PO SCH (19:55)
== END 2024-09-26 02:10 | disposition short-term general hospital (02) | DRG 281 ==
LOC: ED 11:21 → SUATTDRO 14:01 → 2S 14:01